=== PATIENT | female | born 1940 | race Caucasian/White ===

== ENCOUNTER 2016-11-21 14:24 | Emergency (ER) | payer MEDICARE, OTHER ==
[~2016-11-21] VITALS: Ht 162.6 cm; Wt 64.1 kg
[2016-11-21 14:32] VITALS: BP 139/72; PULSE 69; RESP 14; O2SAT 94
--- NOTE | 2016-11-21 14:52 | ED.REPORT ---
HPI-General Illness Date of Service Nov 21, 2016 ED Provider: Dr. Vega 76 year old female with a hx of breast cancer and coronary artery disease s/p stenting, carotid artery stents and a recent femoral stent Sep 10, who presents to the ED referred from the [facility] due to a constant headache for 6 weeks. At the onset of this the patient fell and hit her head. Since then she has not had any other falls. Her family has noticed balance changes over the last week, which worsened today. They also noticed L hand weakness and confusion. Today she was unable to remember where she parked her car. She has also been picking up thing, and dropping them with her L hand. Pt denies Nursing Notes Stated Complaint: L SIDE NUMBNESS Chief Complaint: Multiple Trauma/Fall Nursing Notes Reviewed: Yes Allergies: Coded Allergies: Penicillins (Verified Allergy, Severe, Hives, 11/21/16) clarithromycin (Verified Allergy, Severe, Hives, 11/21/16) clindamycin (Verified Allergy, Severe, Hives, 11/21/16) clopidogrel (Verified Allergy, Severe, Hives, 11/21/16) doxycycline (Verified Allergy, Severe, Hives, 11/21/16) acyclovir (Verified Adverse Reaction, Severe, Extrapyramidal Symptoms, 11/21) codeine (Verified Adverse Reaction, Severe, Nausea,Vomiting, 11/21/16) General Time Seen by MD: 14:52 Chief Complaint Headache, Weakness Hx Obtained From: Patient, Other family..., EMS Arrived By: Ambulance Onset Occurred: More than a week ago... Symptom Duration: Since onset Location: : Head Quality: Painful Severity: Current: Severe Associated with: Reports: Headache, Weak extremity Pertinent Negative: Relieved by nothing Past Medical History Past Medical History Breast cancer Coronary artery disease CT Past Surgical History Lumpectomy R shoulder Artrial stents to R groin Sep 10 Coronary stents Smoking History Unknown if Ever Smoker Review of Systems Full Review of Systems Constitutional: Denies: Fever Respiratory: Denies: Shortness of breath Cardiovascular: Denies: Chest pain GI: Denies: Abdominal pain, Diarrhea, Vomiting Musculoskeletal: Denies: Back pain, Extremity pain Skin: Denies Diaphoresis, Denies Rash Neurologic: Reports: Confusion, Focal weakness (L hand), Headache, Numbness, Problem walking, Denies: Slurred speech, Unable to speak, Vision change Complete sys rev & neg: except as marked. Physical Exam Vital Signs Vital Signs Date Time Temp Pulse Resp B/P Pulse Ox O2 Delivery O2 Flow Rate FiO2 11/21/16 17:49 67 14 138/58 98 Room Air 11/21/16 15:05 65 15 126/61 97 Room Air 11/21/16 14:32 37.2 69 14 139/72 94 Room Air Initial VS: Reviewed General/Constitutional: Awake, Alert Head / Eyes: Atraumatic, Normocephalic, PERRL ENT: Airway patent, Mucous membranes moist Neck: Atraumatic, Supple, Full range of motion Respiratory / Chest: Breath sounds NL, Breath sounds = bilat, No respiratory distress, No rales, No rhonchi, No wheezing Cardiovascular: Heart rate NL, Regular rhythm, Heart sounds NL, Cap refill not delayed, Peripheral circulation NL Abdomen: Soft, Non-tender Back: Atraumatic, Full range of motion Lower Extremity / Pelvis / MS: Full range of motion, Neurologic intact, Vascular intact, No edema Stenting site to L groin healing nicely. Skin: Warm, Dry Neurologic: Oriented X3, Speech NL, CN II - XII intact Weakness in L hand Psychiatric: Affect NL, Mood NL Interpretation & Diagnostics Lab Results Interpretation Test 11/21/16 15:45 Hold Purple Top Tube Received (Received) Hold Blue Top Tube Received (Received) Hold [place] Top Tube Received (Received) General Lab Results Interp 1: Labs reviewed CT Head Interpretation IMPRESSION: 1. Subacute right frontal-parietal subdural hematoma. No significant intracranial mass effect or midline shift. 2. Findings telephoned to Dr. Annita Vega on 11/21/16 at 1501 hrs. Dictated by: Magaly Fernandez MD, PhD on 11/21/2016 at 15:05 Study: Head CT no contrast Interpretation / Wet Read by: Interpret - Radiologist, Discussed w radiologist Re-Eval/Medical Decision Med Decision/Clinical Course Subdural, symptomatic. Stable at this point. No respiratory or vasular compromise ACLS transfer to [facility]. NPO for now. Family aware of all findings, plan and reasons for delays in care today. Time of Eval: 15:20 Re-Evaluation/Progress Note: Pt updated of imaging results and plan for transfer. Time of Eval: 17:35 Re-Evaluation/Progress Note: Transfer center returned call. Neuro surgery will not be available for 2 hours and they do not have beds available. [facility] is contacted. Rechecked pt and family and updated of plan. Time of Eval: 17:28 Re-Evaluation/Progress Note: Family updated of plan for transfer to [facility]. Consultation : Call Returned at: 15:27 Note: [facility] transfer center- will call back. Counseled Regarding: Diagnosis, Need for transfer Discharge & Departure Primary Impression: Subdural hematoma Disposition: Transfer, Acute Care Facility Receiving Hospital: [facility]. Dr. Barba, neuro surgery Transfer Accepted: Yes Transfer Accepted at: 17:49 Transfer Reason: Higher level of care Spoke with: Specialty physician Patient Status: Stable for transfer Patient Informed: Yes Discharge Condition All VS Reviewed: Yes Scribe Attestation Portions of this note were transcribed by Graciela Sharpe. I, (Annita Vega MD ) personally performed the history, physical exam and medical decision-making; I reviewed and confirmed the accuracy of the information in the transcribed note. Signed by: Graciela Sharpe. 11/21/2016, 1816 Annita Vega MD Nov 21, 2016 14:52 Graciela Sharpe Nov 21, 2016 15:22
[2016-11-21 15:05] VITALS: BP 126/61; PULSE 65; RESP 15; O2SAT 97
--- NOTE | 2016-11-21 15:08 | DRSVH ---
CORRECTED PATIENT FIRST NAME SPELLING ON 11/26/16 PROCEDURE: CT BRAIN WITHOUT CONTRAST ([id number]) INDICATIONS: weakness TECHNIQUE: Noncontrast 4.5 mm thick angled axial sections acquired from the foramen magnum to the vertex, with c oronal reformats. COMPARISON: None. FINDINGS: Image quality: Excellent. CSF spaces: Basal cisterns are patent. No extra-axial fluid collections. The ventricles are symmet deep in size and shape. Brain: Isodense subdural hematoma noted over the right frontal and parietal convexities. The right alaniz bdural hematoma has mild mass effect on the adjacent brain parenchyma. There is cerebral volume loss for age, with resultant ventricular and sulcal prominence. There are periventricular and deep white matter chronic small vessel ischemic changes. There is intracranial internal carotid artery and vert ebral artery atherosclerosis. Skull and face: Calvarium and visualized facial bones appear intact, without suspicious lesions. Sinuses: Visualized sinuses and mastoids are clear. IMPRESSION: 1. Subacute right frontal-parietal subdural hematoma. No significant intracranial mass effect or midl ine shift. 2. Findings telephoned to Dr. Annita Vega on 11/21/16 at 1501 hrs. Dictated by: Magaly Fernandez MD, PhD on 11/21/2016 at 15:05 Approved by: Magaly Fernandez MD, PhD on 11/21/2016 at 15:05
[2016-11-21 17:49] VITALS: BP 138/58; PULSE 67; RESP 14; O2SAT 98
[2016-11-21] MEDS: HYDROmorphone 0.5 mg/0.5 mL iSecure Syringe IVPUSH PRN ×2 (17:49→21:30)
[2016-11-21] MEDS ORDERED: Ondansetron 2 mg/mL 2 mL Inj IVPUSH ONE (17:55)
[2016-11-21] MEDS ORDERED: levETIRAcetam Inj 1,000 MG in IV Premix 1 EACH IV ONE (19:05)
[2016-11-21 19:43] LABS: BASOPHILS % (AUTO) 0.3 % (0-3); MONOCYTES % (AUTO) 8.3 % (4-12); Mean Corpuscular Hemoglobin 30.9 pg (27.0-35.0); Mean Corpuscular Volume 93.9 fL (81-100); NEUTROPHILS % (AUTO) 73.8 % (40-74); Platelet Count 252 bil/L (150-400)
[2016-11-21 19:47] LABS: INR 0.97 ratio
--- NOTE | 2016-11-21 21:03 | DRSVH ---
PROCEDURE: CT BRAIN WITHOUT CONTRAST ([id number]) INDICATIONS: repeat [address] to compare, subdural TECHNIQUE: Noncontrast 4.5 mm thick angled axial sections acquired from the foramen magnum to the vertex, with c oronal reformats. COMPARISON: [facility], CT, CT BRAIN WO CON, 11/21/2016, 14:53. FINDINGS: Image quality: Excellent. CSF spaces: Basal cisterns are patent. No extra-axial fluid collections. The ventricles are symmet deep in size and shape. Brain: The subdural hematoma in the right frontoparietal area measuring up to 8 mm in thickness does not appear to have changed since the study earlier at 1453 hrs. In minor mass effect is considered mi nimal on the sulci and gyri. There is minimal amount subfalcine midline shift note tentorial herniati on is seen.. There is cerebral volume loss for age, with resultant ventricular and sulcal prominence . There are periventricular and deep white matter chronic small vessel ischemic changes. There is i ntracranial internal carotid artery atherosclerosis. Skull and face: Calvarium and visualized facial bones appear intact, without suspicious lesions. Sinuses: Visualized sinuses and mastoids are clear. IMPRESSION: The isodense right frontal to parietal subdural hematoma remains unchanged since the CT charles guzman in the day. Dictated by: Wade Dia M.D. on 11/21/2016 at 21:01 Approved by: Wade Dia M.D. on 11/21/2016 at 21:01
[2016-11-21] MEDS ORDERED: _HYDROcodone/APAP 5-325 mg Tablet PO PRN (21:50)
[2016-11-21] MEDS ORDERED: _Ondansetron ODT 4 mg Tablet PO PRN (21:55)
[2016-11-21 22:10] VITALS: BP 106/67; PULSE 71; RESP 17; O2SAT 97
== END 2016-11-21 22:28 | disposition home or self-care (01) ==
LOC: SED 14:24
DX: S06.5X0A Traumatic subdural hemorrhage without loss of consciousness, initial encounter (principal); W18.30XA Fall on same level, unspecified, initial encounter; W22.8XXA Striking against or struck by other objects, initial encounter; Y92.9 Unspecified place or not applicable; Y93.89 Activity, other specified; Y99.8 Other external cause status; I25.2 Old myocardial infarction; I25.10 Atherosclerotic heart disease of native coronary artery without angina pectoris; Z85.3 Personal history of malignant neoplasm of breast; Z95.818 Presence of other cardiac implants and grafts; Z88.0 Allergy status to penicillin; Z88.1 Allergy status to other antibiotic agents; Z88.8 Allergy status to other drugs, medicaments and biological substances; Z88.3 Allergy status to other anti-infective agents; Z88.5 Allergy status to narcotic agent
CPT/HCPCS: 36415; 70450; 80053; 82948; 85025; 85610; 96374; 96375; 96376; 99285; J1170; J1953; J2405

== ENCOUNTER 2016-11-24 10:50 | Emergency (ER) | payer MEDICARE, OTHER ==
[~2016-11-24] VITALS: Ht 162.6 cm; Wt 64.1 kg
--- NOTE | 2016-11-24 10:51 | ED.REPORT ---
HPI-Trauma Minor / Fall Date of Service Nov 24, 2016 ED Provider: Patient is a 76 year old female who reports to the ER via EMS had a ground level fall and hit her head about 4 hours ago. Pt has a small laceration to occiput and c/o left rib pain rated 8/10 in severity. Pt was trying to walk outside without turning on the light when she fell. Pt was seen in the ER two days ago for transient confusion and diagnosed with subdural hematoma. Pt is diabetic and takes metformin and glipizide, blood sugar was 40 this morning. Nursing Notes Stated Complaint: GROUND LEVEL FALL Nursing Notes Reviewed: Yes Allergies: Coded Allergies: Penicillins (Verified Allergy, Severe, Hives, 11/21/16) clarithromycin (Verified Allergy, Severe, Hives, 11/21/16) clindamycin (Verified Allergy, Severe, Hives, 11/21/16) clopidogrel (Verified Allergy, Severe, Hives, 11/21/16) doxycycline (Verified Allergy, Severe, Hives, 11/21/16) acyclovir (Verified Adverse Reaction, Severe, Extrapyramidal Symptoms, 11/21) codeine (Verified Adverse Reaction, Severe, Nausea,Vomiting, 11/21/16) General Time Seen by MD: 10:51 Chief Complaint Fall Hx Obtained From: Patient Arrived By: Ambulance Onset Occurred: 1 - 4 hours ago Symptom Duration: Since onset Caused by: Accidental Location: Head Severity: Current: Mild (left rib cage) Past Medical History Past Medical History Breast cancer Coronary artery disease NM Reports: Diabetes mellitus Past Surgical History Lumpectomy R shoulder Artrial stents to R groin Sep 10 Coronary stents Smoking History Unknown if Ever Smoker Review of Systems Musculoskeletal: Reports: Thoracic pain (left ribs) Skin: Reports Bruising (left occiput laceration) Complete sys rev & neg: except as marked. Physical Exam Initial Vital Signs Vital Signs (First) Date Time Temp Pulse Resp B/P Pulse Ox O2 Delivery O2 Flow Rate FiO2 11/24/16 10:58 36.4 45 15 141/74 95 Room Air 11/24/16 13:30 2 Initial VS: Reviewed Head / Eyes: Normocephalic ENT: Mucous membranes moist, Conjunctiva normal, No scleral icterus Respiratory: Breath sounds normal, Clear to auscultation, No respiratory distress Cardiovascular: Regular rate & rhythm, Heart sounds normal, Intact distal pulses Skin: Warm, Dry, No cyanosis Neurologic: Alert, Oriented, Nonfocal Psychiatric: Mood/affect normal, Behavior normal, Normal thought content General/Constitutional: Awake, Alert Neck: Supple, Non-tender, No midline vertebral tend Head / Eyes: Normocephalic, PERRL, EOMI small bleeding wound on back of the head Lower Extremity / Pelvis / MS: No edema Interpretation & Diagnostics Lab Results Interpretation Result Diagram: 11/24/16 1124 11/24/16 1124 Test 11/24/16 11:24 11/24/16 11:28 White Blood Count 10.6th/mm3 (3.8-10.1) Red Blood Count 3.96mil/mm3 (3.90-5.20) Hemoglobin 12.5g/dL (12.0-15.6) Hematocrit 37.9% (35.0-46.0) Mean Corpuscular Volume 95.7fL (81-100) Mean Corpuscular Hemoglobin 31.6pg (27.0-35.0) Mean Corpuscular Hemoglobin Concent 33.0% (32.0-37.0) Red Cell Distribution Width 15.4% (12.3-15.4) Platelet Count 257bil/L (150-400) Neutrophils (%) (Auto) 86.9% (40-74) Lymphocytes (%) (Auto) 7.7% (14-46) Monocytes (%) (Auto) 4.4% (4-12) Eosinophils (%) (Auto) 0.7% (0-5) Basophils (%) (Auto) 0.1% (0-3) Sodium Level 136mEq/L (134-144) Potassium Level 4.1mEq/L (3.5-5.2) Chloride Level 94mEq/L (97-108) Carbon Dioxide Level 23mmol/L (18-29) Blood Urea Nitrogen 23mg/dL (8-27) Creatinine 1.18mg/dL (0.57-1.00) Estimat Glomerular Filtration Rate 64mL/min (>59) Glucose Level 85mg/dL (60-99) Calcium Level 10.1mg/dL (8.5-10.1) Magnesium Level 1.5mg/dL (1.6-2.6) Total Bilirubin 0.3mg/dL (0.0-1.2) Aspartate Amino Transf (AST/SGOT) 20U/L (0-50) Alanine Aminotransferase (ALT/SGPT) 12U/L (0-32) Alkaline Phosphatase 86U/L (25-165) Troponin T 0.010ug/L (0.0-0.011) Total Protein 8.2g/dL (6.4-8.4) Albumin 4.1g/dL (3.4-5.0) Hold Urine Received (Received) ECG Interpretation Time: 11:14 Interpreted by: ED physician Normal ECG Interpretation: Normal sinus rhythm (54) Rhythm Strip Interpretation : Rhythm Strip Interpretation: 14 beat run of ventricular tachycardia Time: 11:11 Rhythm Strip Interpretation: Interpreted by me CT Head Interpretation IMPRESSION: Grossly unchanged appearance of isodense right frontoparietal subdural hematoma. No new hemorrhage. Dictated by: Keshawn Du M.D. on 11/24/2016 at 13:06 Approved by: Keshawn Du M.D. on 11/24/2016 at 13:06 Study: Head CT no contrast Interpretation / Wet Read by: Interpret - Radiologist CT Chest Interpretation IMPRESSION: Left sixth and seventh rib fractures with left basilar patchy consolidation which could represent atelectasis/aspiration or mild pulmonary contusion. Cardiomegaly. Dictated by: Keshawn Du M.D. on 11/24/2016 at 13:42 Approved by: Keshawn Du M.D. on 11/24/2016 at 13:42 Study type: Chest CT no contrast Interpretation / Wet Read by: Lindsay w radiologist Re-Eval/Medical Decision Med Decision/Clinical Course Re-Evaluation/Progress : Time of Eval: 13:14 Re-Evaluation/Progress Note: Pt rechecked. Informed pt of diagnosis and plan for treatment. Pt understands and agrees with plan. F/U and RTER warnings given. All questions addressed. Consultation : Referral / Consult Name: Jake Plata MD Consulted With: Cardiology Call Returned at: 13:00 Note: He reviewed EKG and rhythm strip and recommends ordering an echocardiogram. He says that if there is no apparent CHF or structural heart disease, no further emergent intervention or treatment is necessary but outpatient follow-up would be appropriate. If there is significant evidence of CHF or structural heart disease she should be admitted for further evaluation. Counseled Regarding: Diagnosis, Lab results Discharge & Departure Shift Change Sign-Out Patient Care Transferred: Yes Discussed Complaint(s): Yes Laboratory Evaluation: Ordered, not yet done (echocardiogram) Imaging Studies: Imaging discussed Response to Therapy: Discussed awaiting echocardiogram results Impression: Primary Impression: Fall from ground level Discharge Condition All VS Reviewed: Yes Condition: Stable Referrals: NOPCP (PCP) Care Transferred to: Dr. Vega Care Transferred at: 15:01 Tatyibcharles Attestation Portion of this note were transcribed by Jie Valle and Bronwyn Best. I, Dr. Milian, personally performed the history, physcial exam, and medical decision- making: I reviewed and confirmed the accuracy for the information in the transcribed note. Signed by: mariam Feliz, 11/20/16 1446 Christophe Milian MD Nov 24, 2016 10:51 BRONWYN BEST Nov 24, 2016 11:05
[2016-11-24 10:58] VITALS: BP 141/74; PULSE 45; RESP 15; O2SAT 95
[2016-11-24] MEDS ORDERED: HYDROcodone-APAP 10-325 mg PO ONE (11:10)
[2016-11-24 11:33] LABS: BASOPHILS % (AUTO) 0.1 % (0-3); EOSINOPHILS % (AUTO) 0.7 % (0-5); MONOCYTES % (AUTO) 4.4 % (4-12); Mean Corpuscular Hemoglobin 31.6 pg (27.0-35.0); Mean Corpuscular Volume 95.7 fL (81-100); NEUTROPHILS % (AUTO) 86.9 % (40-74); Platelet Count 257 bil/L (150-400)
[2016-11-24 11:54] LABS: TROPONIN T 0.01 ug/L (0.0-0.011)
[2016-11-24 12:06] LABS: Magnesium 1.5 mg/dL (1.6-2.6)
--- NOTE | 2016-11-24 13:08 | DRSVH ---
PROCEDURE: CT BRAIN WITHOUT CONTRAST ([id number]) INDICATIONS: trauma TECHNIQUE: Noncontrast 4.5 mm thick angled axial sections acquired from the foramen magnum to the vertex, with c oronal reformats. COMPARISON: [facility], CT, CT BRAIN WO CON, 11/21/2016, 20:30. FINDINGS: Image quality: Excellent. CSF spaces: Basal cisterns are patent. No extra-axial fluid collections. The ventricles are symmet deep in size and shape. Brain: Unchanged appearance of isodense right frontoparietal subdural blood since 11/21/16.. There is cerebral volume loss for age, with resultant ventricular and sulcal prominence. There are periventri cular and deep white matter chronic small vessel ischemic changes. There is intracranial internal ca rotid artery atherosclerosis. Skull and face: Calvarium and visualized facial bones appear intact, without suspicious lesions. Sinuses: Visualized sinuses and mastoids are clear. IMPRESSION: Grossly unchanged appearance of isodense right frontoparietal subdural hematoma. No new hemorrhage. Dictated by: Keshawn Du M.D. on 11/24/2016 at 13:06 Approved by: Keshawn Du M.D. on 11/24/2016 at 13:06
[2016-11-24 13:30] VITALS: BP 121/53; PULSE 54; RESP 19; O2SAT 91
--- NOTE | 2016-11-24 13:44 | DRSVH ---
PROCEDURE: CT CHEST WITHOUT CONTRAST ([id number]) INDICATIONS: trauma TECHNIQUE: Noncontrast 5 mm thick sections acquired from the pulmonary apices to the posterior costophrenic angl es. 7 mm thick coronal and sagittal MIP reformats were then acquired. For radiation dose reduction, the following was used: automated exposure control, adjustment of mA and/or kV according to patient size. COMPARISON: None. FINDINGS: Image quality: Excellent. Lungs and pleura: Patchy left basilar atelectasis or contusion. No pleural effusion or pneumothorax. Central airways appear grossly patent. Upper lobe predominant centrilobular emphysema. Mild dependent atelectasis within the right lung base Mediastinum: Heart is mildly enlarged. Coronary artery calcifications are present. Unenhanced thoraci c area great vessels unremarkable. Enlarged pulmonary arteries raising the possibility of pulmonary a rterial hypertension however recommend clinical correlation. Bones and chest wall: Mildly displaced left sixth and seventh rib fractures. Abdomen: Visualized upper abdominal solid organs and bowel loops appear normal in the absence of con trast. IMPRESSION: Left sixth and seventh rib fractures with left basilar patchy consolidation which could represent ate lectasis/aspiration or mild pulmonary contusion. Cardiomegaly. Dictated by: Keshawn Du M.D. on 11/24/2016 at 13:42 Approved by: Keshawn Du M.D. on 11/24/2016 at 13:42
[2016-11-24] MEDS ORDERED: oxyCODONE-Acetamin 10-325 mg Tablet PO ONE (13:55)
[2016-11-24 14:30] VITALS: BP 124/51; PULSE 50; RESP 20; O2SAT 94
--- NOTE | 2016-11-24 17:50 | DRSVH ---
[facility] [address] [place] [address] Echocardiogram Report Name: YESENIA JUÁREZ MStudy Date: 11/24/2016 Height: 64 in Hospital Exam Location: [facility] Weight: 141 lb Gender: Female BSA: 1.7 m2 : 1940 Age: 76 yrs BP: 121/53 mmHg Reason For Study: CHF Ordering Physician: Performed By: Tu Baugh Interpretation Summary The left ventricle is normal in size. The ejection fraction is estimated to be 40-45%. There is apical septal wall akinesis. There is apical akinesis. There is mid to distal posterolateral wall, distal lnferior wall and the basal inferior wall akinesis. The right ventricle is normal size. Right ventricular systolic function is mildly reduced. There is severe biatrial enlargement. There is mild to moderate mitral regurgitation. There is mild aortic stenosis. There is mild tricuspid regurgitation. The right ventricular systolic pressure is estimated at 57 mmHg assuming a right atrial pressure of 3 mm Hg. There is moderate pulmonary hypertension. The ascending aorta is mildly enlarged. Mild pulmonary artery dilation. Procedure: A two-dimensional transthoracic echocardiogram with color flow and Doppler was performed. The study quality was technically good. There is no prior echocardiogram noted for this patient. The patient was in normal sinus rhythm during the exam. The patient had frequent PVCs during the exam. Left Ventricle: The left ventricle is normal in size. There is normal left ventricular wall thickness. The LVOT diameter is 2.2 cm. The LVOT velocity is 0.96 m/s. There is no thrombus. The ejection fraction is estimated to be 40- 45%. There is apical septal wall akinesis. There is apical akinesis. There is basal inferior wall severe hypokinesis. Assessment of diastolic parameters suggests a pseudonormalization pattern, consistent with elevated filling pressures. Right Ventricle: The right ventricle is normal size. Right ventricular systolic function is mildly reduced. Atria: There is severe biatrial enlargement. The interatrial septum is intact with no evidence for an atrial septal defect. Mitral Valve: There is mild to moderate mitral annular calcification. The mitral valve leaflets are mildly calcified. No significant mitral valve stenosis. There is mild to moderate mitral regurgitation. Aortic Valve: The aortic valve is trileaflet. The aortic valve is mildly calcified. Leaflet mobility is mildly reduced. The peak aortic velocity is 2.7 m/sec. The aortic valve mean gradient is 15.8 mmHg. The calculated aortic valve area is 1.5 cm2. The aortic valve area is 1.7 centimeters squared by planimetry. There is mild aortic stenosis. No aortic regurgitation is present. Tricuspid Valve: The tricuspid valve is normal in structure and function. There is mild tricuspid regurgitation. The right ventricular systolic pressure is estimated at 57 mmHg assuming a right atrial pressure of 3 mm Hg. There is moderate pulmonary hypertension. Pulmonic Valve: The pulmonic valve is normal in structure and function. There is trace pulmonic regurgitation. Great Vessels: The aortic root is normal size. There is aortic root sclerosis/calcification. The ascending aorta is mildly enlarged. Mild pulmonary artery dilation. The IVC is of normal diameter and collapses greater than 50% with a sniff. This suggests a low right atrial pressure of 3 mm Hg. Pericardium/ Pleura There is no pericardial effusion. There is no pleural effusion. MMode/2D Measurements & Calculations LVIDd: 5.5 cm LA dimension RA long axis: 4.8 cm LVOT diam: 2.2 cm LVIDs: 4.2 cm Ao root diam: 3.2 cm FS: 23.0 % LA A2 area RA area: 21.8 cm Aortic Jxn: 2.6 cm EPSS: 1.6 cm RA vol: 83.8 ml asc Aorta Diam: 3.5 cm IVSd: 0.89 cm RA : 49.7 ml/m2 LVPWd: 1.1 cm LA A4 area LA length (vol) LA vol: 92.3 ml LA vol index IVC diam: 2.1 cm EDV(MOD-sp2) DARINEL (plan) LV garcia. diameter/BSA LV sys. diameter/BSA : 106.1 ml : 1.7 cm2 (cm/m^2): 3.2 (cm/m^2): 2.5 Doppler Measurements & Calculations Ao V2 max MV E max bassam MV E/A: 3.8 TR max bassam : 271.8 cm/sec : 115.8 cm/sec Med Peak E' Bassam : 365.6 cm/sec Ao max P.5 mmHg MV A max bassam TR max PG Ao mean P.8 mmH.4 cm/sec E/E' med: 28.8 : 53.5 mmHg LVOT Max Bassam Lat Peak E' Bassam PA V2 max : 96.1 cm/sec : 109.8 cm/sec DARINEL(I,D): 1.5 cm E/E' lat: 10.5 PA mean PG sev ratio: 0.39 Pulm A Revs Dur PA Accel Time MV A dur: 0.08 sec : 0.07 sec MV dec time: 0.20 secAo V2 mean LV V1 max PG PA V2 mean : 189.9 cm/sec : 53.1 cm/sec Ao V2 VTI LV V1 VTI: 24.5 cm PA pr(Accel) : 42.4 mmHg DARINEL(V,D): 1.4 cm2 DARINEL indexed to BSA E/e' average Pulm A Revs Dur - MV (cm^2/m^2): 0.89 A Dur: 0.01 msec Reading Physician:URMILA
[2016-11-24 18:10] VITALS: BP 113/66; PULSE 60; RESP 20; O2SAT 91
--- NOTE | 2016-11-24 19:22 | PCM.HPMED ---
Subjective Date of Service Nov 24, 2016 Primary Provider: Admitting Physician: Primary Care Physician: Ovidio Attending Physician: Chief Complaint: Falling, 12 beats V. tach History of Present Illness: Patient is a 76 year old female who reports to the ER via EMS had a ground level fall and hit her head about 4 hours ago. Pt has a small laceration to occiput and c/o left rib pain rated 8/10 in severity. Pt was trying to walk outside without turning on the light when she fell. Pt was seen in the ER two days ago for transient confusion and diagnosed with subdural hematoma. Pt is diabetic and takes metformin and glipizide, blood sugar was 40 this morning. Allergies Coded Allergies: Penicillins (Verified Allergy, Severe, Hives, 11/21/16) clarithromycin (Verified Allergy, Severe, Hives, 11/21/16) clindamycin (Verified Allergy, Severe, Hives, 11/21/16) clopidogrel (Verified Allergy, Severe, Hives, 11/21/16) doxycycline (Verified Allergy, Severe, Hives, 11/21/16) acyclovir (Verified Adverse Reaction, Severe, Extrapyramidal Symptoms, 11/21) codeine (Verified Adverse Reaction, Severe, Nausea,Vomiting, 11/21/16) PMH Breast cancer Coronary artery disease, AR Diabetes mellitus Past Surgical History Lumpectomy R shoulder Artrial stents to R groin Sep 10 Coronary stents Smoking History Unknown if Ever Smoker Family history- no known history of early cancer, diabetes, coronary artery disease Social History Smoking Status: Unknown if Ever Smoker Exam Vital Signs Vital Sign - Last Date Time Temp Pulse Resp B/P Pulse Ox O2 Delivery O2 Flow Rate FiO2 11/24/16 18:10 60 20 113/66 91 Room Air 11/24/16 14:30 2 11/24/16 10:58 36.4 Lab and Diagnostics Labs Magnesium 1.5, LFTs WNL, PT 10.4, INR 0.97, troponin/BNP needed Result Diagram: 11/24/16 1124 11/24/16 1124 X-Rays, CTs and MRIs CT chest concurrently evaluated by myself, Left sixth and seventh rib fractures with left basilar patchy consolidation which could represent atelectasis/ aspiration or mild pulmonary contusion. Cardiomegaly. CT brain concurrently reviewed by myself along with a few prior. Grossly unchanged appearance of isodense right frontoparietal subdural hematoma. No new hemorrhage. 12-lead ECG None ordered, will order one now. Cardiac Echo Impressions nterpretation Summary The left ventricle is normal in size. The ejection fraction is estimated to be 40-45%. There is apical septal wall akinesis. There is apical akinesis. There is mid to distal posterolateral wall, distal lnferior wall and the basal inferior wall akinesis. The right ventricle is normal size. Right ventricular systolic function is mildly reduced. There is severe biatrial enlargement. There is mild to moderate mitral regurgitation. There is mild aortic stenosis. There is mild tricuspid regurgitation. The right ventricular systolic pressure is estimated at 57 mmHg assuming a right atrial pressure of 3 mm Hg. There is moderate pulmonary hypertension. The ascending aorta is mildly enlarged. Mild pulmonary artery dilation. Assessment & Plan 76-year-old female who is fallen twice in the last 2 weeks was going to be discharged from emergency room but had a very abnormal echocardiogram and observed oh beats of V. tach Ataxia/falling-is this related to arrhythmia? Monitor overnight and getting his physical therapy consultation and check orthostatic vital signs. Ventricular tachycardia-optimize electrolytes and start beta tesfaye, monitor overnight, perhaps discuss with cardiology in the context of CHF. Chronic systolic CHF-chronicity/specific etiology unknown. Checking lipids, EKG, troponin, CK/MB. Not clear yet if inpatient cardiology consult is indicated Subdural hematoma-from fall 11/21 evaluate with PT is unchanged on CT 11/24 Prophylaxis-DVT with SCDs, heparin contraindicated, GI not indicated Disposition- full code from home Apparently the patient went home after I began this note. I do not to examine this patient. Sergio Laird MD Nov 24, 2016 19:22 There is mild to moderate mitral regurgitation. There is mild aortic stenosis. There is mild tricuspid regurgitation. The right ventricular systolic pressure is estimated at 57 mmHg assuming a right atrial pressure of 3 mm Hg. There is moderate pulmonary hypertension. The ascending aorta is mildly enlarged. Mild pulmonary artery dilation. Assessment & Plan 76-year-old female who is fallen twice in the last 2 weeks was going to be discharged from emergency room but had a very abnormal echocardiogram and observed oh beats of V. tach Ataxia/falling-is this related to arrhythmia? Monitor overnight and getting his physical therapy consultation and check orthostatic vital signs. Ventricular tachycardia-optimize electrolytes and start beta tesfaye, monitor overnight, perhaps discuss with cardiology in the context of CHF. Chronic systolic CHF-chronicity/specific etiology unknown. Checking lipids, EKG, troponin, CK/MB. Not clear yet if inpatient cardiology consult is indicated Subdural hematoma-from fall 11/21 evaluate with PT is unchanged on CT 11/24 Prophylaxis-DVT with SCDs, heparin contraindicated, GI not indicated Disposition- full code from home Sergio Laird MD Nov 24, 2016 19:22
[2016-11-24] MEDS ORDERED: Alum-Mag Hydrox-Simeth 30 mL Suspension PO PRN (19:50)
[2016-11-24] MEDS ORDERED: Ondansetron 2 mg/mL 2 mL Inj IVPUSH PRN (19:50)
[2016-11-24] MEDS ORDERED: Polyethylene Glycol (PEG) 17 Gm Powder PO PRN (19:50)
[2016-11-24] MEDS ORDERED: Magnesium Sulf 4 Gm/100 mL H2O 4 GM in IV Premix 1 EACH IV ONE (20:00)
[2016-11-24 20:11] VITALS: BP 142/68; PULSE 78; RESP 14; O2SAT 97
[2016-11-25] MEDS ORDERED: Sodium Chloride LOK Flush 10 mL Syringe IVFLUSH SCH (00:30)
== END 2016-11-24 20:13 | disposition home or self-care (01) ==
LOC: SED 10:50
DX: S22.32XA Fracture of one rib, left side, initial encounter for closed fracture (principal); W01.198A Fall on same level from slipping, tripping and stumbling with subsequent striking against other object, initial encounter; Y93.89 Activity, other specified; Y92.9 Unspecified place or not applicable; Y99.8 Other external cause status; E11.9 Type 2 diabetes mellitus without complications; I25.10 Atherosclerotic heart disease of native coronary artery without angina pectoris; I25.2 Old myocardial infarction; D49.3 Neoplasm of unspecified behavior of breast; Z88.0 Allergy status to penicillin; Z88.1 Allergy status to other antibiotic agents; Z88.5 Allergy status to narcotic agent; Z91.81 History of falling
CPT/HCPCS: 36415; 70450; 71250; 80053; 82948; 83735; 83880; 84484; 85025; 93005; 99285; C8929

== ENCOUNTER 2016-12-12 10:47 | Emergency (ER) | payer MEDICARE, OTHER ==
[~2016-12-12] VITALS: Ht 162.6 cm; Wt 63.2 kg
[2016-12-12 10:54] VITALS: PULSE 58; RESP 16; O2SAT 98
[2016-12-12 11:18] VITALS: BP 155/66; PULSE 52; RESP 19; O2SAT 100
[2016-12-12 11:30] LABS: BASOPHILS % (AUTO) 0.3 % (0-3); EOSINOPHILS % (AUTO) 1.7 % (0-5); MONOCYTES % (AUTO) 6.2 % (4-12); Mean Corpuscular Hemoglobin 30.8 pg (27.0-35.0); Mean Corpuscular Volume 93.5 fL (81-100); NEUTROPHILS % (AUTO) 76.8 % (40-74); Platelet Count 261 bil/L (150-400)
[2016-12-12 11:55] LABS: INR 0.96 ratio
[2016-12-12 12:16] LABS: TROPONIN T < 0.010 ug/L (0.0-0.011)
[2016-12-12 13:46] VITALS: BP 155/62; PULSE 51; RESP 19; O2SAT 100
--- NOTE | 2016-12-12 13:54 | ED.REPORT ---
HPI-General Illness Date of Service Dec 12, 2016 ED Provider: Annita Vega MD The patient is a 76 year old female who was sent to the emergency department by Dr. Dawson for an MRI. The patient was seen here on 11/21 after she had a ground level fall, diagnosed with a subdural hematoma, and transferred to [facility]. She returned again on 11/24 after another ground level fall. The head CT at this visit was unchanged from previous and the chest x-ray showed left-sided rib fractures. Her rib pain has improved but is still there. A few days after the fall she noticed memory loss and left hand weakness that has sense resolved. She has no new complaints today. She states she called Dr. Dawson's office to find out her imaging results and he told her to come to the ED. She denies any deficit with swallowing, speech changes, ambulation change, dizziness, confusion , headaches, incontinence, vision change, numbness, or weakness. She has noticed a cough with white sputum. She denies fever, chills, shortness of breath , abdominal pain, nausea, vomiting, diarrhea, dysuria, or hematuria. Nursing Notes Stated Complaint: MRI/SENT FROM DR. DAWSON OFFICE Chief Complaint: Neuro Symptoms/ Deficits Nursing Notes Reviewed: Yes Allergies: Coded Allergies: Penicillins (Verified Allergy, Severe, Hives, 11/21/16) clarithromycin (Verified Allergy, Severe, Hives, 11/21/16) clindamycin (Verified Allergy, Severe, Hives, 11/21/16) clopidogrel (Verified Allergy, Severe, Hives, 11/21/16) doxycycline (Verified Allergy, Severe, Hives, 11/21/16) acyclovir (Verified Adverse Reaction, Severe, Extrapyramidal Symptoms, 11/21) codeine (Verified Adverse Reaction, Severe, Nausea,Vomiting, 11/21/16) Scheduled PRN Hydrocodone-Acetaminophen 5-300 mg (Hydrocodone-Acetaminophen 5-300 mg) 1 Each Tablet 0.5-1 TABLET PO Q4H PRN PRN pain and cough General Time Seen by : 11:01 Chief Complaint Other Sent to the ED by Dr. Dawson for an MRI Hx Obtained From: Patient Arrived By: Walk-in Sudden in Onset?: No Onset Occurred: More than a week ago... Symptom Duration: 1 day Location: : Chest (left-sided rib) Quality: Painful Severity: Current: Mild Severity: Maximum: Moderate Recent Healthcare: Recent doctor visit, Recent hospitalization Similar Sx Previous: Yes Past Medical History Past Medical History Breast cancer Coronary artery disease CT Subdural hematoma Left-sided rib fractures Reports: Diabetes mellitus Past Surgical History Lumpectomy R shoulder Artrial stents to R groin Sep 10 Coronary stents Family History Noncontributory Smoking History Unknown if Ever Smoker Social History Other Social History: Good social support, Local resident Ambulatory Status Walker Review of Systems Full Review of Systems Constitutional: Denies: Chills, Fever Respiratory: Reports: Prod cough, white, Denies: Shortness of breath Cardiovascular: Reports: Chest pain (left-sided rib pain, improving) GI: Denies: Abdominal pain, Diarrhea, Nausea, Vomiting Female: Denies: Dysuria, Hematuria Skin: Denies Rash Neurologic: Denies: Bladder dysfunction, Bowel dysfunction, Confusion, Dizziness, Focal weakness, Headache, Numbness, Problem walking, Slurred speech, Unable to speak, Vision change Complete sys rev & neg: except as marked. Physical Exam Vital Signs Vital Signs Date Time Temp Pulse Resp B/P Pulse Ox O2 Delivery O2 Flow Rate FiO2 12/12/16 13:46 51 19 155/62 100 Room Air 12/12/16 11:18 52 19 155/66 100 12/12/16 10:54 36.3 58 16 98 Room Air Initial VS: Reviewed Head / Eyes: Atraumatic, Normocephalic, PERRL ENT: Mucous membranes moist, Conjunctiva normal, No scleral icterus Neck: Supple, Non-tender, Full range of motion Cardiovascular: Regular rate & rhythm, Heart sounds normal, Intact distal pulses Abdomen / GI: Soft, Non-tender, No guarding, No rebound, No distention Lymphatic: No lymphadenopathy Extremities: Vascular intact, Neuro intact, No swelling, No tenderness Skin: Warm, Dry, No cyanosis Psychiatric: Mood/affect normal, Behavior normal, Normal thought content General/Constitutional: Awake, Alert, No acute distress, Well appearing, Cooperative Respiratory / Chest: Atraumatic, Breath sounds = bilat, No respiratory distress , No rales, No rhonchi, No stridor, No chest tenderness, No chest wall deformity Wheezing / Retractions: Positive: Wheezing mild (scattered) Neurologic: Oriented X3, Speech NL, No sensory deficits, CN II - XII intact, Cerebellar NL, Memory NL, Gait NL Mild ataxia that is chronic at her baseline. She is using her walker. Her NIH stroke scale is 0. Interpretation & Diagnostics MRI STROKE PROTOCOL IMPRESSION: BRAIN MRI: 1. Allowing for differences in modality, no definite change in right frontoparietal subdural hematoma. Small amount of anterior parafalcine subdural hemorrhage is also present. 2. Volume loss and small vessel ischemic disease. 3. Chronic small right frontoparietal lobe infarct; no evidence of subacute or recent infarct. BRAIN MR ANGIOGRAM: 1. 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 NECK MR ANGIOGRAM: 1. No right internal carotid artery stenosis. Mild left internal carotid artery stenosis. 2. Occluded right subclavian artery, and nonvisualized right vertebral artery origin. Patent left vertebral artery. Findings discussed with Dr. Vega on 12.12.16 at 1413 hrs. The estimate of stenosis included in the report of the imaging study was calculated using the NASCET method Dictated by: Janelle New M.D. on 12/12/2016 at 14:00 Lab Results Interpretation Result Diagram: 12/12/16 1110 12/12/16 1110 Test 12/12/16 11:10 White Blood Count 7.6th/mm3 (3.8-10.1) Red Blood Count 3.86mil/mm3 (3.90-5.20) Hemoglobin 11.9g/dL (12.0-15.6) Hematocrit 36.1% (35.0-46.0) Mean Corpuscular Volume 93.5fL (81-100) Mean Corpuscular Hemoglobin 30.8pg (27.0-35.0) Mean Corpuscular Hemoglobin Concent 33.0% (32.0-37.0) Red Cell Distribution Width 15.8% (12.3-15.4) Platelet Count 261bil/L (150-400) Neutrophils (%) (Auto) 76.8% (40-74) Lymphocytes (%) (Auto) 14.7% (14-46) Monocytes (%) (Auto) 6.2% (4-12) Eosinophils (%) (Auto) 1.7% (0-5) Basophils (%) (Auto) 0.3% (0-3) Prothrombin Time 10.3sec (8.1-12.5) Prothromb Time International Ratio 0.96ratio Activated Partial Thromboplast Time 27.1sec (22.8-33.0) Sodium Level 138mEq/L (134-144) Potassium Level 4.5mEq/L (3.5-5.2) Chloride Level 100mEq/L (97-108) Carbon Dioxide Level 24mmol/L (18-29) Blood Urea Nitrogen 16mg/dL (8-27) Creatinine 0.83mg/dL (0.57-1.00) Estimat Glomerular Filtration Rate 96mL/min (>59) Glucose Level 145mg/dL (60-99) Calcium Level 9.6mg/dL (8.5-10.1) Total Bilirubin 0.2mg/dL (0.0-1.2) Aspartate Amino Transf (AST/SGOT) 18U/L (0-50) Alanine Aminotransferase (ALT/SGPT) 13U/L (0-32) Alkaline Phosphatase 110U/L (25-165) Troponin T < 0.010ug/L (0.0-0.011) Total Protein 7.3g/dL (6.4-8.4) Albumin 3.9g/dL (3.4-5.0) Hold Carreon Top Tube Received (Received) Re-Eval/Medical Decision Source of Hx: Old records, Private physician Time of Eval: 14:18 Re-Evaluation/Progress Note: Rechecked the patient. Discussed MRI results, diagnosis, and plan for discharge. She understands and agrees. All questions were addressed. Consultation : Referral / Consult Name: Jayden Dawson MD Consulted With: Neurology Requested Call at: 14:21 Call Returned at: 14:35 Telemetry Nurse: Will see in office, Agrees with eval, Agrees with plan Note: Discussed the MRI findings with Dr. Dawson. Counseled Regarding: Diagnosis, Lab results, Need for follow-up, When/why to return to ED Discharge & Departure Primary Impression: Rib fractures Encounter type: subsequent encounter Rib fracture type: multiple ribs Fracture type: closed Laterality: left Fracture healing: with routine healing Qualified Code: S22.42XD - Multiple fractures of ribs, left side, subsequent encounter for fracture with routine healing Additional Impressions: Cough Aneurysm Disposition: Home Discharge Condition All VS Reviewed: Yes Condition: Stable Additional Instructions: Thank you for entrusting us with your care today. Your exam, labs, and MRI findings are reassuring. There is no evidence of an acute stroke. There is no change in the subdural hematoma. There is evidence of an aneurysm on your MRI that you may want to discuss with a neurosurgeon. Use 1/2 hydrocodone 5 mg and Tylenol as needed for pain and your cough. Taking a narcotic medication may cause constipation, you can use and over the counter stool softener if needed. Followup with Dr. Grant next week for further evaluation. Please return to the emergency department if you develop a headache, vision changes, slurred speech, dizziness, numbness, weakness, incontinence, or any other new or concerning symptoms. Referrals: NOPCP (PCP) Jayden Dawson MD Attestation Portions of this note were transcribed by Jie Valle. I, Dr. Vega personally performed the history, physical exam and medical decision-making; I reviewed and confirmed the accuracy of the information in the transcribed note. Signed by: Lauryn Oneil, 12/12/2016 and 1445. copies to: Jayden Dawson MD, Shawna L MD Dec 12, 2016 13:54 Jie Valle Dec 12, 2016 13:57
--- NOTE | 2016-12-12 14:25 | DRSVH ---
PROCEDURE: MRI STROKE PROTOCOL ([id number]) Pre- and post-contrast brain MRI, non-contrast brain MR angiogram, pre- and postcontrast neck MR aida ogram INDICATIONS: recent sub acute ischemic stroke and subdural hematoma. TECHNIQUE: Brain: Noncontrast axial T1 spin echo, axial T2 fast spin echo, sagittal and axial FLAIR, coronal T2 fast spin echo, axial gradient echo, axial diffusion and ADC through the brain. After the administr ation of contrast, axial 3D VIBE of the cranial vasculature and brain. Brain MRA: Non-contrast 3-D time of flight MR angiogram, with multiple qivltlp-gkmhclduw-hpbtjjnhft (MIP) reformats performed. Neck MRA: Axial and sagittal TruFISP through the neck. Coronal dynamic MR angiogram during administ ration of contrast in the arterial and venous phases, with 3-dimenstional ztfdqio-ffmrnwswh-vhvbaputt n (MIP) reformats constructed from subtraction images. COMPARISON: [facility], CT, CT BRAIN WO CON, 12/08/2016, 12:34. FINDINGS: Image quality: Excellent. BRAIN: CSF spaces: Ventricles are normal in size and shape. Basal cisterns are patent. No extra-axial flu id collections. Brain: As seen by CT, there is a right frontoparietal subdural hematoma, with a maximal thickness of roughly 12 mm overlying the right parietal lobe. The anterior aspect of this hematoma overlying the r ight anterolateral frontal lobe measures roughly 6 mm. There is a small amount of right anterior para falcine subdural hemorrhage measuring roughly 4 mm in thickness. There is a mild degree of cervical v olume loss. Mild patchy nodular signal within the periventricular and subcortical white matter is pre sent. There is subcortical high FLAIR signal intensity within the right frontoparietal lobe junction, measuring 25 mm transverse by 14 mm anteroposterior, corresponding to the infarct seen by CT. No opal vated diffusion signal within this location is present. Lima-white matter interface is normal. Diffu geovanni weighted images show no acute ischemic insults. Brainstem appears normal. Normal intravascular flow voids are present. No abnormal intracranial enhancement. Skull and face: Calvarial marrow signal is normal. Orbits appear normal. Sinuses: Sinuses and mastoids are clear. BRAIN MR ANGIOGRAM: Anterior circulation: Intracranial internal carotid arteries are normal in size and enhancement. Th e flow within the paired anterior cerebral arteries is normal and symmetric. The flow within the mid dle cerebral arteries is normal and symmetric. The anterior communicating artery is seen. There is a 2 mm diameter saccular aneurysm arising on the right anterior communicating artery/A1 segment junct ion. No stenoses nor occlusions. Posterior circulation: The visualized portions of the vertebral arteries demonstrate normal caliber, and join to form a normal appearing basilar artery. The flow within the posterior cerebral arteries is normal and symmetric. No stenoses, occlusions, or aneurysms. NECK MR ANGIOGRAM: Carotids: Great vessels demonstrate a conventional anatomy as they arise from the aortic arch. The origins of the common carotid arteries appear patent. The calibers and courses of both common caroti d arteries are normal. No right internal carotid artery stenosis. There is mild, roughly 20% stenosis of the proximal left internal carotid artery. Posterior circulation: Right vertebral artery origin is not well-seen, but the right vertebral artery is otherwise patent. There is linear low T2 intensity seen within the lumen of the right mid vertebr al artery, likely artifactual. Left vertebral artery is patent. More superior portions of both verteb ral arteries demonstrate normal course and caliber, and join to form a normal appearing basilar arter y. Miscellaneous: The right subclavian artery is occluded at its origin. Left subclavian artery is paten t. Pre-contrast images through the neck show no soft tissue abnormalities. IMPRESSION: BRAIN MRI: 1. Allowing for differences in modality, no definite change in right frontoparietal subdural hematoma . Small amount of anterior parafalcine subdural hemorrhage is also present. 2. Volume loss and small vessel ischemic disease. 3. Chronic small right frontoparietal lobe infarct; no evidence of subacute or recent infarct. BRAIN MR ANGIOGRAM: 1. 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 NECK MR ANGIOGRAM: 1. No right internal carotid artery stenosis. Mild left internal carotid artery stenosis. 2. Occluded right subclavian artery, and nonvisualized right vertebral artery origin. Patent left letitia tebral artery. Findings discussed with Dr. Vega on 12.12.16 at 1413 hrs. The estimate of stenosis included in the report of the imaging study was calculated using the NASCET method Dictated by: Janelle New M.D. on 12/12/2016 at 14:00 Approved by: Janelle New M.D. on 12/12/2016 at 14:14
[2016-12-12] MEDS ORDERED: HYDR-3090 PO (14:40)
[2016-12-12] MEDS ORDERED: EZET10TA PO (15:06)
[2016-12-12] MEDS ORDERED: ALLO300T2 PO (15:06)
[2016-12-12] MEDS ORDERED: MULT-666 PO (15:06)
[2016-12-12] MEDS ORDERED: ZYL100 PO (15:06)
[2016-12-12] MEDS ORDERED: FURO40TA4 PO (15:06)
[2016-12-12] MEDS ORDERED: GLIP10TA10 PO (15:06)
[2016-12-12] MEDS ORDERED: LISI40TA PO (15:06)
[2016-12-12] MEDS ORDERED: METF-496 PO (15:06)
[2016-12-12] MEDS ORDERED: KEP500TA PO (15:06)
[2016-12-12] MEDS ORDERED: LIP40 PO (15:06)
[2016-12-12] MEDS ORDERED: ALBU8.5H2 INHALATION (15:06)
[2016-12-12] MEDS ORDERED: METO-272 PO (15:06)
[2016-12-12] MEDS ORDERED: ZOLP5TAB6 PO (15:06)
[2016-12-12] MEDS ORDERED: TIOT18CA3 IH (15:06)
[2016-12-12] MEDS ORDERED: ERGO2000 PO (15:06)
== END 2016-12-12 14:51 | disposition home or self-care (01) ==
LOC: SED 10:47
DX: S22.42XD Multiple fractures of ribs, left side, subsequent encounter for fracture with routine healing (principal); I72.9 Aneurysm of unspecified site; R05 Cough; E11.9 Type 2 diabetes mellitus without complications; I25.10 Atherosclerotic heart disease of native coronary artery without angina pectoris; I25.2 Old myocardial infarction
CPT/HCPCS: 36415; 70549; 70553; 80053; 84484; 85025; 85610; 85730; 99284; A9585

== ENCOUNTER 2017-02-22 15:06 | Emergency (ER) | payer MEDICARE, OTHER ==
[~2017-02-22] VITALS: Ht 162.6 cm; Wt 62.7 kg
[~2017-02-22 15:06] MED LIST: ALBU8.5H2 INHALATION; ALLO300T2 PO; ERGO2000 PO; EZET10TA PO; FURO40TA4 PO; GLIP10TA10 PO; HYDR-3090 PO; KEP500TA PO; LIP40 PO; LISI40TA PO; METF-496 PO; METO-272 PO; MULT-666 PO; TIOT18CA3 IH; ZOLP5TAB6 PO; ZYL100 PO
[2017-02-22 15:20] VITALS: BP 125/77; PULSE 77; RESP 18; O2SAT 100
--- NOTE | 2017-02-22 15:36 | ED.REPORT ---
HPI-Trauma Minor / Fall Date of Service Feb 22, 2017 ED Provider: Chilo Clements MD Patient is a 77 year old female who presents to the ED s/p a fall down 2 stairs where she hit her head and back w/o LOC. She is not on blood thinners. Her only complaints are L sided head tenderness and back pain. She denies neck pain, chest pain, abdominal pain, headache, or any other symptoms. She had a head bleed in November from multiple falls. Nursing Notes Stated Complaint: FELL, HIT BACK OF HEAD Chief Complaint: Multiple Trauma/Fall Nursing Notes Reviewed: Yes Allergies: Coded Allergies: Penicillins (Verified Allergy, Severe, Hives, 11/21/16) clarithromycin (Verified Allergy, Severe, Hives, 11/21/16) clindamycin (Verified Allergy, Severe, Hives, 11/21/16) clopidogrel (Verified Allergy, Severe, Hives, 11/21/16) doxycycline (Verified Allergy, Severe, Hives, 11/21/16) acyclovir (Verified Adverse Reaction, Severe, Extrapyramidal Symptoms, 11/21) codeine (Verified Adverse Reaction, Severe, Nausea,Vomiting, 11/21/16) Scheduled Albuterol HFA (Proair HFA) 8.5 Gm Hfa.aer.ad 2 PUFFS INHALATION Q4H Atorvastatin (Lipitor) 40 Mg Tablet 40 MG PO DAILY Ergocalciferol (Vitamin D2) (Vitamin D2) 2,000 Unit Tablet 2,000 UNIT PO DAILY Ezetimibe (Zetia) 10 Mg Tablet 10 MG PO DAILY Furosemide (Furosemide) 40 Mg Tablet 40 MG PO DAILY Glipizide (Glipizide) 10 Mg Tablet 10 MG PO DAILY Levetiracetam (Keppra) 500 Mg Tablet 500 MG PO BID Lisinopril (Lisinopril) 40 Mg Tablet 40 MG PO DAILY Metformin ER (Metformin ER) 1,000 Mg Tablet 1,000 MG PO BID Metoprolol Succinate ER (Metoprolol Succinate ER) 50 Mg Tab.er.24h 50 MG PO DAILY Multivitamin (Once Daily) 1 Each Tablet 1 EACH PO DAILY Tiotropium [place] (Spiriva) 18 Mcg Cap.w.dev 18 MCG IH DAILY Zolpidem (Zolpidem) 5 Mg Tablet 5 MG PO HS Scheduled PRN Hydrocodone-Acetaminophen 5-300 mg (Hydrocodone-Acetaminophen 5-300 mg) 1 Each Tablet 0.5-1 TABLET PO Q4H PRN PRN pain and cough General Time Seen by MD: 15:32 Chief Complaint Fall down stairs Hx Obtained From: Patient, Other family... Arrived By: Walk-in Onset Occurred: Just prior to arrival Similar Sx Previous: Yes Past Medical History Past Medical History Breast cancer Coronary artery disease [place] Subdural hematoma Left-sided rib fractures Reports: Diabetes mellitus Reports: Seizure disorder Past Surgical History Lumpectomy R shoulder Artrial stents to R groin Sep 10 Coronary stents Family History Noncontributory Smoking History Unknown if Ever Smoker Social History Other Social History: Good social support, Local resident Ambulatory Status Walker Review of Systems Musculoskeletal: Reports: Back pain, Denies: Neck pain Neurologic: Denies: Headache Complete sys rev & neg: except as marked. Cardiovascular: Denies: Chest pain GI: Reports: Abdominal pain Physical Exam Initial Vital Signs Vital Signs (First) Date Time Temp Pulse Resp B/P Pulse Ox O2 Delivery O2 Flow Rate FiO2 02/22/17 15:20 36.9 77 18 125/77 100 Room Air Initial VS: Reviewed Abdomen / GI: Soft, Non-tender Skin: Warm, Dry Neurologic: Alert, Oriented, Nonfocal Psychiatric: Mood/affect normal, Behavior normal, Normal thought content General/Constitutional: Awake, Alert, Well developed Neck: Full range of motion Head / Eyes: Atraumatic, Normocephalic, PERRL, EOMI Respiratory / Chest: No respiratory distress Abrasion over R mid anterior chest wall. Cardiovascular: Heart rate NL, Regular rhythm, Heart sounds NL Neurologic: Oriented X3, Speech NL, CN II - XII intact Interpretation & Diagnostics X-Ray Chest Interpretation Chest Xray Interpretation: diffuse interstitial lung disease View: AP & lat Interpretation / Wet Read by: Interpret - Radiologist CT Head Interpretation No abnormalities Study: Head CT no contrast Interpretation / Wet Read by: Interpret - Radiologist Re-Eval/Medical Decision Med Decision/Clinical Course 77-year-old female h/o CVA presenting status post mechanical ground-level fall onto head and right mid back. Complaining of mild right mid back pain. She is not on blood thinners. Vital signs stable. CT brain no acute pathology. Chest x-ray with old rib fractures which she sustained a fall in November and no acute pathology. Discharged with return precautions. Re-Evaluation/Progress : Time of Eval: 16:51 Re-Evaluation/Progress Note: Rechecked patient. Discussed imaging results and plan for discharge. Patient understands and agrees with plan. All questions addressed at this time. Counseled Regarding: Diagnosis, Lab results, Need for follow-up, When/why to return to ED Discharge & Departure Impression: Primary Impression: Fall Encounter type: initial encounter Qualified Code: W19.XXXA - Unspecified fall, initial encounter Additional Impression: Head trauma Encounter type: initial encounter Qualified Code: S09.90XA - Unspecified injury of head, initial encounter Disposition: Home Discharge Condition All VS Reviewed: Yes Condition: Stable Additional Instructions: Thank you for entrusting us with your care. Your imaging results are reassuring. Return to the emergency department if you experience headache, numbness, weakness, or any other new or worsening symptoms. Referrals: NOPCP (PCP) Scribe Attestation Portions of this note were transcribed by Annalee Das. I, Dr. Clements personally performed the history, physical exam and medical decision-making; I reviewed and confirmed the accuracy of the information in the transcribed note. Signed by: Annalee Das 02/22/2017, 1707 Chilo Clements MD Feb 22, 2017 15:36 ANNALEE DAS Feb 22, 2017 15:44
[2017-02-22 17:21] VITALS: BP 123/82; PULSE 57; RESP 16; O2SAT 96
--- NOTE | 2017-02-23 06:00 | DRSVH ---
PROCEDURE: CT BRAIN WITHOUT CONTRAST ([id number]) INDICATIONS: fall TECHNIQUE: Noncontrast 4.5 mm thick angled axial sections acquired from the foramen magnum to the vertex, with c oronal reformats. COMPARISON: None. FINDINGS: Image quality: Excellent. CSF spaces: Basal cisterns are patent. No extra-axial fluid collections. The ventricles are symmet deep in size and shape. Brain: No intracranial bleeds or masses. There is cerebral volume loss for age, with resultant vent ricular and sulcal prominence. There are periventricular and deep white matter chronic small vessel ischemic changes. There is intracranial internal carotid artery atherosclerosis. Skull and face: Calvarium and visualized facial bones appear intact, without suspicious lesions. Sinuses: Visualized sinuses and mastoids are clear. IMPRESSION: No acute intracranial process. Dictated by: Keshawn Du M.D. on 02/22/2017 at 16:21 Approved by: Keshawn Du M.D. on 02/22/2017 at 16:22
--- NOTE | 2017-02-23 06:00 | DRSVH ---
PROCEDURE: X-RAY CHEST, TWO VIEWS ([id number]) INDICATIONS: trauma TECHNIQUE: 2 views of the chest were acquired. COMPARISON: None. FINDINGS: Surgical changes and devices: Surgical clips projecting in the right axillary soft tissues. There is a right humeral head soft tissue anchor. Lungs and pleura: No pleural effusions or pneumothorax. Diffuse interstitial cysts disease and scarr ing in lung bases. No definite focal consolidation patchy opacities in the right lung base Mediastinum: Mediastinal contours are normal. Heart size is normal. Bones and chest wall: Multiple age-indeterminate left rib fractures, probably chronic with callus alt yovanny recommend clinical correlation. Lateral curvature of the spine. IMPRESSION: Diffuse/interstitial lung disease although in the absence of comparison studies cannot exclude superi mposed aspiration/atelectasis or potentially early pneumonia in particular involving the right lower lobe. As clinically warranted, continued followup with chest radiographs to be performed. Multiple, age-indeterminate left rib fractures Dictated by: Keshawn Du M.D. on 02/22/2017 at 16:22 Approved by: Keshawn Du M.D. on 02/22/2017 at 16:25
== END 2017-02-22 17:21 | disposition home or self-care (01) ==
LOC: SED 15:06
DX: S09.90XA Unspecified injury of head, initial encounter (principal); W10.9XXA Fall (on) (from) unspecified stairs and steps, initial encounter; Y93.9 Activity, unspecified; Y92.9 Unspecified place or not applicable; Y99.9 Unspecified external cause status; E11.59 Type 2 diabetes mellitus with other circulatory complications; I25.10 Atherosclerotic heart disease of native coronary artery without angina pectoris; I25.2 Old myocardial infarction; Z85.3 Personal history of malignant neoplasm of breast; Z79.84 Long term (current) use of oral hypoglycemic drugs